=== PATIENT | male | born 1990 | race Caucasian/White ===

== ENCOUNTER → 2023-04-06 | Outpatient (CLI) | payer OTHER ==
[~2023-04-06] MED LIST: diazePAM 5MG TABLET As Ordered ONE
== END ==
LOC: M PAIN 14:30
PROVIDERS: ATTEND Anesthesiology
DX: M79.18 Myalgia, other site (principal); R56.9 Unspecified convulsions; E78.5 Hyperlipidemia, unspecified; M54.50 Low back pain, unspecified; F32.A Depression, unspecified; J30.9 Allergic rhinitis, unspecified; F41.9 Anxiety disorder, unspecified; F43.10 Post-traumatic stress disorder, unspecified; G43.909 Migraine, unspecified, not intractable, without status migrainosus; Z87.891 Personal history of nicotine dependence; Z79.899 Other long term (current) drug therapy; Z88.8 Allergy status to other drugs, medicaments and biological substances; Z91.018 Allergy to other foods
CPT/HCPCS: 20553; J0665

== ENCOUNTER → 2023-05-20 | Outpatient (CLI) | payer OTHER | LOC: M PAIN 15:30 | PROVIDERS: ATTEND Anesthesiology | DX: M79.18 Myalgia, other site (principal); E78.5 Hyperlipidemia, unspecified; M54.50 Low back pain, unspecified; J30.9 Allergic rhinitis, unspecified; F33.9 Major depressive disorder, recurrent, unspecified; F41.9 Anxiety disorder, unspecified; F43.10 Post-traumatic stress disorder, unspecified; G43.909 Migraine, unspecified, not intractable, without status migrainosus; Z87.891 Personal history of nicotine dependence; Z79.899 Other long term (current) drug therapy; Z88.8 Allergy status to other drugs, medicaments and biological substances; Z91.018 Allergy to other foods ==